=== PATIENT | male | born 1975 | race Caucasian/White ===

== ENCOUNTER 2017-04-28 19:35 | Emergency (ER) | payer OTHER ==
[~2017-04-28] VITALS: Ht 177.8 cm; Wt 86.2 kg
[2017-04-28 19:59] VITALS: BP 139/77
--- NOTE | 2017-04-28 20:05 | PHYS DOC ---
Past Medical History Past Medical History: No Pertinent History Past Surgical History: No Surgical History Alcohol Use: None Drug Use: None Adult General Chief Complaint Chief Complaint: FINGER INJURY HPI HPI Patient is a 41 year old male presents to the emergency department stating that he was playing softball today when his right index finger was hit with a ball. He does have a 3 cm laceration noted to the DIP joint. Patient is unsure when his last tetanus immunization occurred. No bleeding is currently noted from the site. Patient does have full range of motion of the finger. Patient is right-hand dominant. Review of Systems Review of Systems Constitutional: Denies fever or chills [] Eyes: Denies change in visual acuity, redness, or eye pain [] HENT: Denies nasal congestion or sore throat [] Respiratory: Denies cough or shortness of breath [] Cardiovascular: No additional information not addressed in HPI [] GI: Denies abdominal pain, nausea, vomiting, bloody stools or diarrhea [] : Denies dysuria or hematuria [] Musculoskeletal: Denies back pain or joint pain. Pain to right index finger after being hit with a softball Integument: Denies rash or skin lesions. Laceration right index finger Neurologic: Denies headache, focal weakness or sensory changes [] Endocrine: Denies polyuria or polydipsia [] Current Medications Current Medications Current Medications Medications (Trade) Dose Ordered Sig/Buddy Start Time Stop Time Status Last Admin Dose Admin Diphtheria/ Tetanus/Acell Pertussis (Boostrix) 0.5 ml ONCE ONCE 04/28/17 20:15 04/28/17 20:16 DC 04/28/17 20:48 0.5 ML Lidocaine/Sodium Bicarbonate (Buffered Lidocaine 1%) 20 ml 1X ONCE 04/28/17 20:15 04/28/17 20:16 DC 04/28/17 20:15 20 ML Allergies Allergies Allergies Coded Allergies Type Severity Reaction Last Updated Verified No Known Drug Allergies 04/28/17 No Physical Exam Physical Exam Constitutional: Well developed, well nourished, no acute distress, non-toxic appearance. [] HENT: Normocephalic, atraumatic, bilateral external ears normal, oropharynx moist, no oral exudates, nose normal. [] Eyes: PERRLA, EOMI, conjunctiva normal, no discharge. [] Neck: Normal range of motion, no tenderness, supple, no stridor. [] Cardiovascular:Heart rate regular rhythm, no murmur [] Lungs & Thorax: Bilateral breath sounds clear to auscultation [] Abdomen: Bowel sounds normal, soft, no tenderness, no masses, no pulsatile masses. [] Skin: Warm, dry, no erythema, no rash. Patient with a 3 cm laceration to the right index finger. Bleeding is currently controlled. Back: No tenderness Extremities: Right index finger tenderness, no cyanosis, no clubbing, ROM intact , no edema. Patient with full range of motion to the right index finger and hand. Cap refill brisk less than 2 seconds good sensation noted to the tip of the finger. Radial pulses 2+ Neurologic: Alert and oriented X 3, normal motor function, normal sensory function, no focal deficits noted. [] Psychologic: Affect normal, judgement normal, mood normal. [] Current Patient Data Vital Signs Vital Signs Date Time Temp Pulse Resp B/P (MAP) Pulse Ox O2 Delivery O2 Flow Rate FiO2 04/28/17 19:59 98.6 76 16 98 Room Air 98.6 EKG EKG [] Radiology/Procedures Radiology/Procedures [] Course & Med Decision Making Course & Med Decision Making Pertinent Labs and Imaging studies reviewed. (See chart for details) Patient's x-ray was positive for a dislocated finger at the DIP joint. Finger was injected with 1% lidocaine buffered with approximately 3 mL injected into the PIP joint. The finger was relocated x-rays was obtained patient also had 7 sutures placed in the DIP joint. Patient will be placed on antibiotic as the laceration happened over the dislocated area. Patient will be recommended to use ice packs on 20 minutes off 20 minutes several times a day. Also recommended Tylenol or ibuprofen for pain and discomfort. Dressing will be applied to the area patient will be encouraged to have the sutures out in 7-10 days. Signs and symptoms of infection redness warmth tenderness or any yellow/ greenish drainage of a come from the site physician occur he needs to follow-up primary care physician immediately. Patient will be discharged back to [facility]. [] Dragon Disclaimer Dragon Disclaimer This electronic medical record was generated, in whole or in part, using a voice recognition dictation system. Departure Departure Impression: Primary Impression: Dislocated finger Additional Impression: Laceration Disposition: 01 HOME, SELF-CARE Condition: STABLE Patient Instructions: Finger Dislocation, [id number], Laceration Care, Adult , [id number] Additional Instructions: Your finger via x-ray showed a dislocation. After providing lidocaine into the area your finger was reduced with the x-ray showing normal bony alignment. Tylenol or ibuprofen for pain and discomfort. Medications prescribed Ice packs on 20 minutes off 20 minutes several times a day. Keep the area clean and dry. Clean the site twice a day with soap and water and apply antibiotic ointment. Wear the aluminum splint for at least the next 3-5 days to promote wound healing. Watch for signs and symptoms of infection: Redness, warmth, tenderness or any yellow/greenish drainage of a come from the site. Sutures out in the next 7-10 days. Return back to emergency department sign symptoms become worse. Scripts Cephalexin (CEPHALEXIN) 500 Mg Tablet 1 TAB PO BID, #20 TAB Prov: BOGDAN HURTADO APRN 04/28/17 Problem Qualifiers BOGDAN HURTADO APRN Apr 28, 2017 20:05
[2017-04-28] MEDS ORDERED: LIDOCAINE 1% / SOD BICARB 8.4% 20 ML VIAL. IJ ONE (20:15)
[2017-04-28] MEDS ORDERED: DIPHTH,PERTUSS(ACELL),TET TOX 0.5 ML DISP.SYRIN. VAX IM ONE (20:15)
[2017-04-28] MEDS ORDERED: CEPH500T PO (21:07)
--- NOTE | 2017-04-29 08:51 | RAD ---
Examination: 2 views of the right second digit History: History of postreduction Comparison: Same day exam 8:27 PM Findings: Interval reduction of the dorsal dislocation of the distal phalanx , now in normal alignment. Small laceration identified volar to the distal phalanx. Impression: Postreduction changes dorsal dislocation distal phalanx of the second digit.
--- NOTE | 2017-04-29 08:54 | RAD ---
Examination: 3 views of the right second digit History: History of injury playing football Comparison: None available Findings: There is dorsal dislocation of the distal phalanx in relation to the middle phalanx of the second digit. Small laceration identified volar to the DIP joint. Impression: Dorsal dislocation of the distal phalanx in relation to the middle phalanx of the second digit.
== END 2017-04-28 21:27 | disposition home or self-care (01) ==
LOC: EEVIPCON 19:35 → ER 19:35
DX: S63.250A Unspecified dislocation of right index finger, initial encounter (principal); S61.210A Laceration without foreign body of right index finger without damage to nail, initial encounter; W21.07XA Struck by softball, initial encounter; Y93.64 Activity, baseball; Y99.8 Other external cause status; Y92.89 Other specified places as the place of occurrence of the external cause
CPT/HCPCS: 12002; 26770; 73140; 90471; 90715; 99284-25